=== PATIENT | female | born 1980 | race Caucasian/White ===

== ENCOUNTER 2016-09-07 19:14 | Emergency (ER) ==
[2016-09-07] MEDS ORDERED: DECADRON PO ONE (20:20)
--- NOTE | 2016-09-07 20:23 | PROVIDER DOCUMENTATION ---
HPI-General Adult - General Chief Complaint: Cold Symptoms Stated Complaint: CONGESTED Time Seen by Provider: 09/07/16 19:28 Source: patient Allergies/Adverse Reactions: Patient Allergies Allergy/AdvReac Type Severity Reaction Status Date / Time No Known Allergies Allergy Verified 09/07/16 19:22 Home Medications: Home Medication List Medication Instructions Recorded Confirmed Last Taken Type LISINOpril [Prinivil] 10 mg PO DAILY 05/03/12 09/07/16 09/07/16 03:00 History Furosemide [Lasix] 20 mg PO DAILY PRN 01/03/14 09/07/16 02/24/16 History Potassium Gluconate [Potassium] 99 mg PO DAILY 02/24/16 09/07/16 02/24/16 History Azithromycin [Zithromax Z-Irwin] 250 mg PO DIRECTED #1 pkg 09/07/16 Unknown Rx Guaifenesin/D-Methorphan Hb/PE 1 each PO BID #10 tablet 09/07/16 Unknown Rx [Deconex Dmx Tablet] Ibuprofen [Motrin] 800 mg PO Q8H PRN PRN #20 tablet 09/07/16 Unknown Rx Methylprednisolone [Medrol Dosepak] 4 mg PO DIRECTED #1 package 09/07/16 Unknown Rx Omeprazole [Prilosec] 20 mg PO DAILY@0700 #20 capsule 09/07/16 Unknown Rx - History of Present Illness -Gen Adult Nature of Presenting Problems: Pt is a 36 y/o F c chief complaint of cough and cold symptoms x 1 month. She states she thinks she was exposed to the flu or a parainfluenza virus from her sons. She has continued to have a cough, chills, body aches. On arrival, pt is in minimal distress and afebrile. Pt has a h/o htn and states that she normally is hypertensive in the evenings. Review of Systems - Adult - REVIEW OF SYSTEMS - ADULT Constitutional: reports: chills, fatique Eyes: reports: no symptoms reported. denies: blurred vision, double vision Ears, Nose, Mouth & Throat: reports: no symptoms reported. denies: ear pain, nose pain, throat pain Cardiovascular: reports: no symptoms reported. denies: chest pain, orthopnea Respiratory: reports: cough. denies: shortness of breath Gastrointestinal: reports: no symptoms reported. denies: abdominal pain, nausea Genitourinary: reports: no symptoms reported. denies: dysuria, flank pain, hematuria Musculoskeletal: reports: no symptoms reported. denies: joint pain, joint swelling, muscle aches Integumentary: reports: no symptoms reported. denies: itching, rash Neurological: reports: no symptoms reported. denies: numbness, paresthesia Psychiatric: reports: no symptoms reported Endocrine: reports: no symptoms reported Hematologic/Lymphatic: reports: no symptoms reported Allergic/Immunologic: reports: no symptoms reported All Other Systems: Reviewed and Negative Past History - Adult - PAST MEDICAL HISTORY-ADULT Review of Records: reports: Old Records Reviewed, Nursing Assessment Review, Medications Reviewed, Social history reviewed & non-contributory. Major Childhood Illnesses: reports: denies history Cardiovascular: reports: HTN Respiratory: reports: denies history Gastrointestinal: reports: GERD Obstetrical/Gynecological: reports: denies history Genitourinary: reports: kidney stones Musculoskeletal: reports: denies history Neurological: reports: denies history Psychiatric: reports: anxiety Endocrine/Immune: reports: denies history Other Conditions: reports: denies history - PRIOR SURGERIES/PROCEDURES Surgical/Procedure History: reports: reviewed, not pertinent - PRIOR HOSPITALIZATIONS Prior Hospitalizations: reports: none - IMMUNIZATION STATUS Childhood Immunizations: See Nurse Assessment Flu Vaccine: See Nurse Assessment - FAMILY HISTORY Family History: reviewed, not pertinent - SOCIAL HISTORY Smoking: denies Substance Use: none/never Alcohol Use Frequency: never Living Situation: family Physical Exam-General - PHYSICAL EXAM-ADULT Initial Vital Signs Reviewed: Yes - CONSTITUTIONAL General Appearance: appears well, alert, no apparent distress - EYES Eyes: PERRL/EOMI, pink conjunctivae - HEAD, EARS, NOSE, MOUTH & THROAT HENMT: normocephalic/atraumatic, moist mucous membranes, normal ENT inspection - NECK Neck: non-tender, full range of motion, supple, normal inspection - RESPIRATORY Respiratory: chest non-tender, lungs clear, normal breath sounds. negative: respiratory distress, rhonchi, stridor, wheezing, plerual rub - CARDIOVASCULAR Cardiovascular: normal peripheral pulses, regular rate, rhythm, no edema - CHEST (BREASTS) Chest/Breast: deferred - GASTROINTESTINAL (ABDOMEN) Abdominal Exam: normal bowel sounds, non tender, soft - MUSCULOSKELETAL Back Exam: normal inspection, no CVA tenderness, no vertebral tenderness Extremity: normal range of motion, non-tender, normal gait - NEUROLOGIC Neurologic: grossly normal, no motor/sensory deficits - PSYCHIATRIC Psych/Mental Status: normal mood/affect, normal thought content, normal thought process, oriented x 3 Progress - PLAN OF CARE/RESULTS Progress/Plan/Lab Results: Orders Category Date Time Status CHEST-2 VIEWS [RAD] Stat Exams 09/07/16 19:18 Taken Flu Swab [INFLUENZA SCREEN A/B] Stat Lab 09/07/16 19:18 Completed Dexamethasone [Decadron] Med 09/07/16 20:20 Discontinued 4 mg PO NOW ONE Vital Signs - 24 hr 09/07/16 09/07/16 19:16 20:31 Temperature 97.7 F Pulse Rate 87 87 Respiratory 14 16 Rate Blood Pressure 155/100 150/102 O2 Sat by Pulse 99 99 Oximetry - XRAY 1 XRAY Study: Chest Impression: Normal XRAY Interpretation: no acute abnormality - radiology Departure - Departure Time of Disposition Order: 20:21 DIAGNOSIS: URI (upper respiratory infection) Qualifiers: URI type: unspecified URI Qualified Code(s): J06.9 - Acute upper respiratory infection, unspecified Disposition: HOME 01 Certified Medical Emergency: Emergent Condition: Stable Additional Instructions: ED Follow Up Instructions: You have been treated by a care provider in the Emergency Department. These instructions are being provided to you so you can have an understanding of how to care for yourself upon discharge. Upon discharge from the Emergency Department, you are responsible for making arrangements for follow-up care by a physician of your choice. Take all prescribed medications as directed. Return to the Emergency Department immediately for any new or worsening symptoms. You may call the Physician Referral phone number at [phone] to obtain a list of Physicians who are taking new patients. Prescriptions: Guaifenesin/D-Methorphan Hb/PE [Deconex Dmx Tablet] 1 each PO BID #10 tablet Methylprednisolone [Medrol Dosepak] 4 mg PO DIRECTED #1 package Ibuprofen [Motrin] 800 mg PO Q8H PRN PRN #20 tablet PRN Reason: inflammation Omeprazole [Prilosec] 20 mg PO DAILY@0700 #20 capsule Azithromycin [Zithromax Z-Irwin] 250 mg PO DIRECTED #1 pkg Referrals: Paramjit August MD [Primary Care Provider] - Call for Appoint. -1 week Instructions: Upper Respiratory Infection, Adult, [id number] Attestation - Physician/ KIMBERLY Attestation Patient care was provided by Advanced Practice Provider:: Yes Advanced Practice Provider:: Raymundo Aguilar Advanced Practice Provider documentation review:: The Mid-level provider documentation, treatment plan and medical decision making was reviewed by the physician who agrees with all treatment and medical decision making by the MLP.
[2016-09-07 20:33] VITALS: BP 150/102
--- NOTE | 2016-09-08 07:33 | Diag Imaging Result Document ---
PROCEDURE NAME: CHEST-2 VIEWS - 09/07/2016 FRONTAL AND LATERAL CHEST, TWO VIEWS: COMPARISON: Compared to 05/03/2012. FINDINGS: The lungs are well expanded. The heart is not enlarged. The vessels are not distended. There are no infiltrates. No pleural effusions. No free air beneath the diaphragm. IMPRESSION: No pneumonia or congestive failure.
== END 2016-09-07 20:32 | disposition home or self-care (01) ==
LOC: ED 19:14
DX: J06.9 Acute upper respiratory infection, unspecified (principal); R05 Cough; R68.83 Chills (without fever); R09.81 Nasal congestion; R53.83 Other fatigue; R52 Pain, unspecified; I10 Essential (primary) hypertension; Z79.899 Other long term (current) drug therapy
CPT/HCPCS: 71020; 87804; J8540